=== PATIENT | female | born 1990 | race Caucasian/White ===

== ENCOUNTER 2022-12-29 23:54 | Observation (INO) | payer MEDICAID ==
[~2022-12-29] VITALS: Ht 157.5 cm; Wt 72.6 kg
[2022-12-30] MEDS ORDERED: PREN-176 PO (00:10)
[2022-12-30] MEDS ORDERED: LACTATED RINGERS 1,000 ML IV SCH (00:35)
== END 2022-12-30 01:20 | disposition home or self-care (01) ==
LOC: 8 EST LDRP 23:54
PROVIDERS: ADMIT Specialist; ATTEND Specialist
DX: O26.892 Other specified pregnancy related conditions, second trimester (principal); R10.9 Unspecified abdominal pain; O62.9 Abnormality of forces of labor, unspecified; Z3A.25 25 weeks gestation of pregnancy
CPT/HCPCS: 99281; G0378; 59025; G0379